=== PATIENT | female | born 1980 | race Caucasian/White ===

== ENCOUNTER → 2018-04-01 | Outpatient (REF) | payer BC | LOC: M SFHCLERA 14:50 | DX: J06.9 Acute upper respiratory infection, unspecified (principal) ==

== ENCOUNTER → 2019-01-26 | Outpatient (CLI) | payer BC ==
--- NOTE | 2019-01-26 10:22 | REP ---
Clinical: Wheezing . Comparison: None . Technique: PA and lateral. Findings: The mediastinum and cardiac silhouette are normal. The lung coelho demonstrate mild coarsened markings which may reflect bronchitis or reactive airway disease. No focal consolidation, effusion, or pneumothorax. The skeletal structures are intact and normal. Impression: 1. Possible bronchitis versus chronic reactive airway disease. 2. No focal consolidation. Electronically Signed by Inderjit Sheth MD 01/26/2019 10:14 A
== END ==
LOC: M LRY 09:49
PROVIDERS: ATTEND Nurse Practitioner Family
DX: R06.2 Wheezing (principal)